=== PATIENT | male | born 1995 | race Two or more races ===

== ENCOUNTER 2025-02-12 13:16 | Emergency (ER) | payer MEDICAID ==
[~2025-02-12] VITALS: Ht 185.4 cm; Wt 83.5 kg
[2025-02-12 13:39] LABS: PLATELET COUNT (AUTO) 317 K/uL (150-450); RED BLOOD CELL COUNT(AUTO) 4.44 MIL/uL (4.5-6.0); RED CELL DISTRIBUTION WIDTH 14.1 % (11.5-15.0); WHITE BLOOD COUNT (AUTO) 10.5 K/uL (4.3-11.0)
[2025-02-12 13:46] LABS: CALCIUM, SERUM 8.7 mg/dL (8.5-10.1); CREATININE 0.8 mg/dL (0.6-1.3); SODIUM SERUM 137 mmol/L (136-145); UREA NITROGEN, BLOOD 8 mg/dL (7-18)
[2025-02-12 13:54] LABS: ALCOHOL, BLOOD < 3 mg/dL (0-10); ASPARTATE AMINOTRANSFERASE 11 U/L (15-37); TOTAL PROTEIN, SERUM 7.2 g/dL (6.4-8.2)
[2025-02-12 17:12] VITALS: BP 109/58; TEMP 98.6; O2SAT 98
== END 2025-02-12 17:12 | disposition home or self-care (01) ==
LOC: EDBD 13:19 → ER 13:19
DX: F19.10 Other psychoactive substance abuse, uncomplicated (principal); Z79.899 Other long term (current) drug therapy
CPT/HCPCS: 36415; 80048-TC; 80076-TC; 85025-TC; G0480